=== PATIENT | female | born 1960 | race Caucasian/White ===

== ENCOUNTER 2017-09-16 19:07 | Emergency (ER) | payer OTHER ==
[~2017-09-16] VITALS: Ht 152.4 cm; Wt 65.3 kg
[~2017-09-16 19:07] MED LIST: AMITIZA24 MCG PO; AMLODIPINE BES2.5 MG PO; AMLODIPINE BESYL5 MG PO; AMOXICILLIN500 MG PO; ATIVAN1 MG PO; B-121000 MCG PO; BACTRIM DS 8001 TA1 PO; DIFLUCAN150 MG PO; FLEXERIL10 MG PO; KEFLEX500 MG PO; KENALOG0.1% TP; LOPRESSOR100 MG PO; METOPROLOL SR50 MG PO; MOTRIN800 MG PO; OMEPRAZOLE20 MG PO; OXYCODONE5 MG PO; PEPCID20 MG PO; PRAVACHOL20 MG PO; PREVACID30 M1 PO; Phenergan25 MG PO; ROBAXIN500 MG PO; SYNTHROID,LEV150 MCG PO; SYNTHROID,LEVO50 MCG PO; SYNTHROID,LEVO88 MCG PO; SYNTHROID0.025 MG; TOPROL XL25 MG PO; TRAMADOL HCL50 MG PO; TRIMOX500 MG PO; VIBRAMYCIN100 MG PO; VICODIN 5/500 505 MG PO; XANAX0.5 MG PO; ZITHROMAX Z PA250 MG PO
[2017-09-16 19:33] LABS: BASO % 0.1 % (0.0-1.0); EOS % 0.2 % (1.0-4.0); HEMATOCRIT 39.1 % (37.0-47.0); LYMPH # 2.5 10*3/uL (1.3-4.4); LYMPH % 18.8 % (27.0-41.0); MEAN CELL VOLUME 92.4 fl (81.0-99.0); MEAN CORPUSCULAR HGB 30.7 pg (27.0-31.0); MEAN CORPUSCULAR HGB CONC 33.2 g/dl (33.0-37.0); MEAN PLATELET VOLUME 8.9 fl (9.6-12.3); MONO # 0.8 10*3/uL (0.1-1.0); MONO % 5.6 % (3.0-9.0); NEUT # 9.9 10*3/uL (2.3-7.9); NEUT % 74.5 % (47.0-73.0); PLATELET COUNT AUTOMATED 270 10*3/uL (130-400); RED BLOOD COUNT 4.23 10*6/uL (4.10-5.10); RED CELL DISTRI WIDTH 13.7 % (0-14.5); WHITE BLOOD COUNT 13.4 10*3/uL (4.8-10.8)
[2017-09-16 19:44] LABS: INTERNATIONAL NORM RATIO 0.9 (2.0-3.5)
[2017-09-16 19:53] LABS: ALBUMIN 3.4 gm/dl (3.1-4.5); ALKALINE PHOSPHATASE 66 U/L (45-117); BUN 14 mg/dl (7-24); CHLORIDE 104 mmol/L (98-107); CREATININE 0.78 mg/dL (0.55-1.02); POTASSIUM 3.9 mmol/L (3.5-5.1); SGOT/AST 18 IU/L (3-35); SGPT/ALT 32 U/L (12-78); SODIUM 137 mmol/L (136-145); TOTAL PROTEIN 6.5 gm/dL (6.4-8.2)
[2017-09-16 19:59] LABS: TROPONIN I < 0.015 ng/ml (<0.045)
[2017-09-16 20:09] LABS: BILIRUBIN NEGATIVE (NEGATIVE); BLOOD NEGATIVE (NEGATIVE); CLARITY CLEAR (CLEAR); COLOR YELLOW (YELLOW); GLUCOSE NEGATIVE (NEGATIVE); KETONE NEGATIVE (NEGATIVE); LEUKO ESTERASE NEGATIVE (NEGATIVE); NITRITE NEGATIVE (NEGATIVE); SPECIFIC GRAVITY <= 1.005 (1.005-1.030); UROBILINOGEN 0.2 E.U./dl (0.2-1.0)
[2017-09-16 20:17] LABS: BACTERIA TRACE; WBC 0-2 wbc/hpf (0-5)
[2017-09-16 20:18] LABS: URINE AMPHETAMINES < 1000 (1000ng/ml); URINE BARBITURATES < 200 (200ng/ml); URINE BENZODIAZEPINES < 200 (200ng/ml); URINE CANNABINOIDS (THC) < 50 (50ng/ml); URINE COCAINE < 300 (300ng/ml); URINE METHADONE < 300 (300ng/ml); URINE OPIATES < 300 (300ng/ml); URINE PHENCYCLIDINE < 25 (25ng/ml)
[2017-09-16] MEDS ORDERED: AMOXICILLIN500 M2 PO (20:39)
[2017-09-16] MEDS ORDERED: Motrin,Rufen800 MG PO (20:39)
[2017-09-16] MEDS ORDERED: HYDROXYZINE HCL25 MG PO (20:39)
== END 2017-09-16 20:45 | disposition home or self-care (01) ==
LOC: ED 19:07
PROVIDERS: Physician Assistant
DX: F41.9 Anxiety disorder, unspecified (principal); K08.89 Other specified disorders of teeth and supporting structures; F17.200 Nicotine dependence, unspecified, uncomplicated; Z98.51 Tubal ligation status; Z79.899 Other long term (current) drug therapy

== ENCOUNTER 2017-09-22 20:37 | Emergency (ER) | payer OTHER ==
[~2017-09-22] VITALS: Ht 162.5 cm; Wt 68.0 kg
[~2017-09-22 20:37] MED LIST changes: +AMOXICILLIN500 M2 PO; +HYDROXYZINE HCL25 MG PO; +Motrin,Rufen800 MG PO
[2017-09-22] MEDS ORDERED: PREDNISONE20 M1 PO (21:32)
== END 2017-09-22 22:26 | disposition home or self-care (01) ==
LOC: ED 20:37
DX: F41.9 Anxiety disorder, unspecified (principal); M54.2 Cervicalgia; K08.89 Other specified disorders of teeth and supporting structures; M54.41 Lumbago with sciatica, right side; Z98.51 Tubal ligation status; Z79.899 Other long term (current) drug therapy

== ENCOUNTER → 2018-10-11 | Outpatient (CLI) | payer OTHER ==
[~2018-10-11] MED LIST changes: +PREDNISONE20 M1 PO
[2018-10-11 09:18] LABS: HEMATOCRIT 40.4 % (37.0-47.0); HEMOGLOBIN 12.8 g/dl (12.0-16.0); MEAN CELL VOLUME 94.6 fl (81.0-99.0); MEAN CORPUSCULAR HGB CONC 31.7 g/dl (33.0-37.0); MEAN PLATELET VOLUME 9.4 fl (9.6-12.3); RED BLOOD COUNT 4.27 10*6/uL (4.10-5.10); RED CELL DISTRI WIDTH 13.8 % (0-14.5); WHITE BLOOD COUNT 9.5 10*3/uL (4.8-10.8)
[2018-10-11 09:48] LABS: ALBUMIN 3.4 gm/dl (3.1-4.5); BUN 15 mg/dl (7-24); CHLORIDE 106 mmol/L (98-107); CHOLESTEROL 161 mg/dL (<200); CREATININE 1.01 mg/dL (0.55-1.02); POTASSIUM 3.9 mmol/L (3.5-5.1); SGOT/AST 16 IU/L (3-35); SGPT/ALT 17 U/L (12-78); SODIUM 139 mmol/L (136-145); TRIGLYCERIDES 79 mg/dl (<150); VLDL CHOLESTEROL 16 mg/dL (6-40)
[2018-10-11 09:56] LABS: ALKALINE PHOSPHATASE 76 U/L (45-117); FREE T4 0.79 ng/dl (0.76-1.46); HDL CHOLESTEROL 80 mg/dl (40-60); LDL CHOLESTEROL 65 mg/dL (9-159); TOTAL PROTEIN 6.7 gm/dL (6.4-8.2)
== END | disposition home or self-care (01) ==
LOC: LAB 08:36
PROVIDERS: Family Medicine
DX: E78.00 Pure hypercholesterolemia, unspecified (principal); E03.9 Hypothyroidism, unspecified; I10 Essential (primary) hypertension; E55.9 Vitamin D deficiency, unspecified; F41.1 Generalized anxiety disorder; E74.00 Glycogen storage disease, unspecified

== ENCOUNTER → 2019-01-11 | Outpatient (CLI) | payer OTHER ==
[2019-01-11 07:58] LABS: HEMATOCRIT 43.5 % (37.0-47.0); MEAN CORPUSCULAR HGB 29.6 pg (27.0-31.0); MEAN CORPUSCULAR HGB CONC 32.2 g/dl (33.0-37.0); MEAN PLATELET VOLUME 9.7 fl (9.6-12.3); RED BLOOD COUNT 4.73 10*6/uL (4.10-5.10); WHITE BLOOD COUNT 7.9 10*3/uL (4.8-10.8)
[2019-01-11 08:09] LABS: ALBUMIN 3.5 gm/dl (3.1-4.5); BUN 11 mg/dl (7-24); CHLORIDE 108 mmol/L (98-107); CHOLESTEROL 178 mg/dL (<200); CREATININE 0.76 mg/dL (0.55-1.02); HDL CHOLESTEROL 65 mg/dl (40-60); LDL CHOLESTEROL 97 mg/dL (9-159); POTASSIUM 4.7 mmol/L (3.5-5.1); SGOT/AST 19 IU/L (3-35); SGPT/ALT 49 U/L (12-78); SODIUM 142 mmol/L (136-145); TOTAL PROTEIN 7.1 gm/dL (6.4-8.2); TRIGLYCERIDES 82 mg/dl (<150); VLDL CHOLESTEROL 16 mg/dL (6-40)
[2019-01-11 08:15] LABS: ALKALINE PHOSPHATASE 98 U/L (45-117); FREE T4 1.14 ng/dl (0.76-1.46)
[2019-01-11 08:16] LABS: THYROID STIM HORMONE (HS) 0.043 uIU/ml (0.358-4.75)
== END | disposition home or self-care (01) ==
LOC: LAB 06:57
PROVIDERS: Family Medicine
DX: E55.9 Vitamin D deficiency, unspecified (principal); E03.9 Hypothyroidism, unspecified; E78.00 Pure hypercholesterolemia, unspecified; Z87.891 Personal history of nicotine dependence

== ENCOUNTER 2019-09-18 09:41 | Emergency (ER) | payer OTHER ==
[~2019-09-18] VITALS: Ht 152.4 cm; Wt 62.6 kg
[2019-09-18 10:27] LABS: BASO # 0.1 10*3/uL (0.0-0.1); BASO % 0.5 % (0.0-1.0); EOS # 0.2 10*3/uL (0.0-0.4); EOS % 1.6 % (1.0-4.0); HEMATOCRIT 44.5 % (37.0-47.0); LYMPH # 2.1 10*3/uL (1.3-4.4); LYMPH % 21.1 % (27.0-41.0); MEAN CELL VOLUME 92.1 fl (81.0-99.0); MEAN CORPUSCULAR HGB 30.6 pg (27.0-31.0); MEAN CORPUSCULAR HGB CONC 33.3 g/dl (33.0-37.0); MEAN PLATELET VOLUME 9.1 fl (9.6-12.3); MONO # 0.4 10*3/uL (0.1-1.0); MONO % 3.7 % (3.0-9.0); NEUT # 7.4 10*3/uL (2.3-7.9); NEUT % 72.8 % (47.0-73.0); PLATELET COUNT AUTOMATED 288 10*3/uL (130-400); RED BLOOD COUNT 4.83 10*6/uL (4.10-5.10); RED CELL DISTRI WIDTH 14.3 % (0-14.5); WHITE BLOOD COUNT 10.2 10*3/uL (4.8-10.8)
[2019-09-18 10:44] LABS: ALBUMIN 3.1 gm/dl (3.1-4.5); ALKALINE PHOSPHATASE 79 U/L (45-117); BUN 18 mg/dl (7-24); CHLORIDE 107 mmol/L (98-107); CREATININE 0.73 mg/dL (0.55-1.02); POTASSIUM 4.3 mmol/L (3.5-5.1); SGOT/AST 26 IU/L (3-35); SGPT/ALT 36 U/L (12-78); SODIUM 138 mmol/L (136-145); T3 UPTAKE 34 % (31-39); THYROXINE (T4) TOTAL 3.7 ug/dl (4.8-13.9); TOTAL PROTEIN 6.7 gm/dL (6.4-8.2)
[2019-09-18 10:49] LABS: TROPONIN I < 0.015 ng/ml (<0.045)
[2019-09-18 10:51] LABS: THYROID STIM HORMONE (HS) 0.141 uIU/ml (0.358-4.75)
[2019-09-18] MEDS ORDERED: LEVOTHYROXINE50 MCG PO (11:09)
== END 2019-09-18 11:30 | disposition home or self-care (01) ==
LOC: ED 09:41
PROVIDERS: Nurse Practitioner
DX: E03.9 Hypothyroidism, unspecified (principal); K21.9 Gastro-esophageal reflux disease without esophagitis; I10 Essential (primary) hypertension; F41.9 Anxiety disorder, unspecified; F17.200 Nicotine dependence, unspecified, uncomplicated; Z79.899 Other long term (current) drug therapy; Z79.2 Long term (current) use of antibiotics

== ENCOUNTER → 2020-10-08 | Outpatient (CLI) | payer OTHER ==
[~2020-10-08] MED LIST changes: +LEVOTHYROXINE50 MCG PO
== END | disposition home or self-care (01) ==
LOC: MAMMO 11:00
PROVIDERS: ATTEND Family Medicine
DX: Z12.31 Encounter for screening mammogram for malignant neoplasm of breast (principal)

== ENCOUNTER 2021-01-02 15:32 | Emergency (ER) | payer OTHER ==
[~2021-01-02] VITALS: Wt 62.6 kg
== END 2021-01-02 18:54 | disposition home or self-care (01) ==
LOC: ED 15:32
DX: S61.210A Laceration without foreign body of right index finger without damage to nail, initial encounter (principal); M54.5 Low back pain; I10 Essential (primary) hypertension; E78.5 Hyperlipidemia, unspecified; X50.0XXA Overexertion from strenuous movement or load, initial encounter; Y93.89 Activity, other specified; Y92.89 Other specified places as the place of occurrence of the external cause; Y99.8 Other external cause status

== ENCOUNTER → 2021-02-05 | Outpatient (CLI) | payer OTHER | END | disposition home or self-care (01) | LOC: COVID19 15:07 | PROVIDERS: ATTEND Internal Medicine | DX: Z11.52 Encounter for screening for COVID-19 (principal) ==

== ENCOUNTER 2021-03-18 16:36 | Emergency (ER) | payer OTHER ==
[~2021-03-18] VITALS: Wt 68.0 kg
[2021-03-18] MEDS ORDERED: Synthroid,Levo25 MCG PO (16:40)
[2021-03-18] MEDS ORDERED: FLUOXETINE HCL40 MG PO (16:40)
[2021-03-18] MEDS ORDERED: DEXILANT30 MG PO (16:40)
[2021-03-18] MEDS ORDERED: METOPROLOL SUCC25 M2 PO (16:41)
[2021-03-18] MEDS ORDERED: CYCLOBENZAPRINE10 MG PO (16:41)
[2021-03-18] MEDS ORDERED: LINZESS290 MC1 PO (16:41)
[2021-03-18] MEDS ORDERED: PRAVASTATIN SOD20 MG PO (16:41)
== END 2021-03-18 23:00 | disposition left against medical advice (07) ==
LOC: ED 16:36
DX: R51.9 Headache, unspecified (principal); I10 Essential (primary) hypertension; Z53.21 Procedure and treatment not carried out due to patient leaving prior to being seen by health care provider

== ENCOUNTER 2021-03-31 18:46 | Emergency (ER) | payer OTHER ==
[~2021-03-31 18:46] MED LIST changes: +CYCLOBENZAPRINE10 MG PO; +DEXILANT30 MG PO; +FLUOXETINE HCL40 MG PO; +LINZESS290 MC1 PO; +METOPROLOL SUCC25 M2 PO; +PRAVASTATIN SOD20 MG PO; +Synthroid,Levo25 MCG PO
[2021-03-31 19:11] LABS: BASO # 0.1 10*3/uL (0.0-0.1); BASO % 0.4 % (0.0-1.0); EOS # 0.1 10*3/uL (0.0-0.4); EOS % 0.7 % (1.0-4.0); HEMATOCRIT 44.4 % (37.0-47.0); LYMPH # 3.9 10*3/uL (1.3-4.4); LYMPH % 28.4 % (27.0-41.0); MEAN CELL VOLUME 89.3 fl (81.0-99.0); MEAN CORPUSCULAR HGB CONC 34.7 g/dl (33.0-37.0); MEAN PLATELET VOLUME 9.3 fl (9.6-12.3); MONO # 0.8 10*3/uL (0.1-1.0); MONO % 5.6 % (3.0-9.0); NEUT # 8.8 10*3/uL (2.3-7.9); NEUT % 64.4 % (47.0-73.0); PLATELET COUNT AUTOMATED 375 10*3/uL (130-400); RED BLOOD COUNT 4.97 10*6/uL (4.10-5.10); RED CELL DISTRI WIDTH 13.8 % (0-14.5); WHITE BLOOD COUNT 13.7 10*3/uL (4.8-10.8)
[2021-03-31 19:22] LABS: ACT PARTIAL THROMBO TIME 23.2 SECONDS (20.0-32.1); INTERNATIONAL NORM RATIO 0.9 (2.0-3.5)
[2021-03-31 19:27] LABS: ALBUMIN 3.9 gm/dl (3.1-4.5); ALKALINE PHOSPHATASE 95 U/L (45-117); BUN 19 mg/dl (7-24); CHLORIDE 98 mmol/L (98-107); CREATININE 1.61 mg/dL (0.55-1.02); SGOT/AST 37 IU/L (3-35); SGPT/ALT 46 U/L (12-78); SODIUM 130 mmol/L (136-145); TOTAL PROTEIN 8.1 gm/dL (6.4-8.2)
[2021-03-31 19:31] LABS: TROPONIN I < 0.015 ng/ml (<0.045)
[2021-03-31 19:59] LABS: LIPASE 116 U/L (73-393)
[2021-03-31 20:18] LABS: ETHYL ALCOHOL < 3.0 mg/dl (<3)
== END 2021-03-31 22:37 | disposition home or self-care (01) ==
LOC: ED 18:46
PROVIDERS: Emergency Medicine; Internal Medicine
DX: R07.9 Chest pain, unspecified (principal); R00.2 Palpitations; E87.1 Hypo-osmolality and hyponatremia; R25.2 Cramp and spasm; N18.32 Chronic kidney disease, stage 3b; Z79.899 Other long term (current) drug therapy

== ENCOUNTER 2021-05-14 13:28 | Emergency (ER) | payer OTHER ==
[~2021-05-14] VITALS: Wt 61.7 kg
[2021-05-14 14:00] LABS: BASO # 0.1 10*3/uL (0.0-0.1); BASO % 0.7 % (0.0-1.0); EOS # 0.4 10*3/uL (0.0-0.4); EOS % 3.5 % (1.0-4.0); HEMATOCRIT 41.6 % (37.0-47.0); LYMPH % 28.6 % (27.0-41.0); MEAN CELL VOLUME 93.7 fl (81.0-99.0); MEAN CORPUSCULAR HGB 31.1 pg (27.0-31.0); MEAN CORPUSCULAR HGB CONC 33.2 g/dl (33.0-37.0); MEAN PLATELET VOLUME 9.1 fl (9.6-12.3); MONO # 0.7 10*3/uL (0.1-1.0); MONO % 6.8 % (3.0-9.0); NEUT # 6.4 10*3/uL (2.3-7.9); NEUT % 60.1 % (47.0-73.0); PLATELET COUNT AUTOMATED 463 10*3/uL (130-400); RED BLOOD COUNT 4.44 10*6/uL (4.10-5.10); RED CELL DISTRI WIDTH 12.8 % (0-14.5); WHITE BLOOD COUNT 10.6 10*3/uL (4.8-10.8)
[2021-05-14 14:14] LABS: INTERNATIONAL NORM RATIO 0.9 (2.0-3.5)
[2021-05-14 14:21] LABS: ALBUMIN 3.6 gm/dl (3.1-4.5); ALKALINE PHOSPHATASE 158 U/L (45-117); BUN 10 mg/dl (7-24); CHLORIDE 103 mmol/L (98-107); CREATININE 1.02 mg/dL (0.55-1.02); POTASSIUM 3.9 mmol/L (3.5-5.1); SGOT/AST 29 IU/L (3-35); SGPT/ALT 49 U/L (12-78); SODIUM 134 mmol/L (136-145)
== END 2021-05-14 18:01 | disposition home or self-care (01) ==
LOC: ED 13:28
PROVIDERS: Physician Assistant
DX: E86.0 Dehydration (principal); Z20.822 Contact with and (suspected) exposure to COVID-19; R10.12 Left upper quadrant pain; R42 Dizziness and giddiness; F17.200 Nicotine dependence, unspecified, uncomplicated; Z98.890 Other specified postprocedural states; Z79.899 Other long term (current) drug therapy; Z98.51 Tubal ligation status

== ENCOUNTER 2021-10-09 13:02 | Emergency (ER) | payer OTHER ==
[~2021-10-09] VITALS: Wt 62.6 kg
[2021-10-09 13:27] LABS: BASO # 0.1 10*3/uL (0.0-0.1); BASO % 0.6 % (0.0-1.0); EOS # 0.2 10*3/uL (0.0-0.4); EOS % 1.8 % (1.0-4.0); HEMATOCRIT 34.2 % (37.0-47.0); LYMPH # 3.3 10*3/uL (1.3-4.4); LYMPH % 34.8 % (27.0-41.0); MEAN CELL VOLUME 91.2 fl (81.0-99.0); MEAN CORPUSCULAR HGB 30.9 pg (27.0-31.0); MEAN CORPUSCULAR HGB CONC 33.9 g/dl (33.0-37.0); MEAN PLATELET VOLUME 8.9 fl (9.6-12.3); MONO # 0.6 10*3/uL (0.1-1.0); MONO % 6.5 % (3.0-9.0); NEUT # 5.3 10*3/uL (2.3-7.9); PLATELET COUNT AUTOMATED 326 10*3/uL (130-400); RED BLOOD COUNT 3.75 10*6/uL (4.10-5.10); RED CELL DISTRI WIDTH 13.5 % (0-14.5); WHITE BLOOD COUNT 9.4 10*3/uL (4.8-10.8)
[2021-10-09 13:39] LABS: ACT PARTIAL THROMBO TIME 25.7 SECONDS (20.0-32.1); INTERNATIONAL NORM RATIO 0.9 (2.0-3.5)
[2021-10-09 13:45] LABS: ALKALINE PHOSPHATASE 106 U/L (45-117); BUN 12 mg/dl (7-24); CHLORIDE 107 mmol/L (98-107); CREATININE 0.84 mg/dL (0.55-1.02); POTASSIUM 3.8 mmol/L (3.5-5.1); SGOT/AST 15 IU/L (3-35); SGPT/ALT 18 U/L (12-78); SODIUM 137 mmol/L (136-145); TOTAL PROTEIN 6.3 gm/dL (6.4-8.2)
== END 2021-10-09 15:13 | disposition left against medical advice (07) ==
LOC: ED 13:02
PROVIDERS: Emergency Medicine
DX: R53.83 Other fatigue (principal); R20.0 Anesthesia of skin

== ENCOUNTER → 2021-10-19 | Outpatient (CLI) | payer OTHER | END | disposition home or self-care (01) | LOC: MAMMO 15:30 | PROVIDERS: ATTEND Internal Medicine Nephrology | DX: Z12.31 Encounter for screening mammogram for malignant neoplasm of breast (principal); R06.02 Shortness of breath ==

== ENCOUNTER → 2021-11-09 | Outpatient (CLI) | payer OTHER ==
[~2021-11-09] MED LIST changes: +LEVOTHYROXINE50 MC1 PO; -PRAVASTATIN SOD20 MG PO; +PRAVASTATIN SOD40 MG PO
== END | disposition home or self-care (01) ==
LOC: CARD 11-02 01:10
PROVIDERS: ATTEND Internal Medicine Nephrology
DX: R06.02 Shortness of breath (principal)

== ENCOUNTER → 2021-12-01 | Outpatient (CLI) | payer OTHER | LOC: CARD 11-04 07:00 | PROVIDERS: ATTEND Internal Medicine Nephrology | DX: R06.02 Shortness of breath (principal) ==

== ENCOUNTER → 2021-12-14 | Outpatient (CLI) | payer OTHER | END | disposition home or self-care (01) | LOC: MAMMO 12-01 09:00 → US 12-01 09:30 → MAMMO 14:00 | PROVIDERS: ATTEND Internal Medicine Nephrology | DX: N63.20 Unspecified lump in the left breast, unspecified quadrant (principal); R92.8 Other abnormal and inconclusive findings on diagnostic imaging of breast; R92.2 Inconclusive mammogram; N64.9 Disorder of breast, unspecified ==

== ENCOUNTER → 2022-01-18 | Outpatient (CLI) | payer OTHER | END | disposition home or self-care (01) | LOC: LAB 13:28 | PROVIDERS: ATTEND Internal Medicine Nephrology | DX: E03.9 Hypothyroidism, unspecified (principal) ==

== ENCOUNTER 2022-02-10 21:29 | Emergency (ER) | payer OTHER | END 2022-02-10 22:25 | disposition left against medical advice (07) | LOC: ED 21:29 | DX: Z13.89 Encounter for screening for other disorder (principal); Z98.51 Tubal ligation status; Z98.890 Other specified postprocedural states; Z79.899 Other long term (current) drug therapy ==

== ENCOUNTER → 2022-02-25 | Outpatient (CLI) | payer OTHER | END | disposition home or self-care (01) | LOC: RAD 10:35 | PROVIDERS: ATTEND Internal Medicine Nephrology | DX: M50.30 Other cervical disc degeneration, unspecified cervical region (principal); M25.78 Osteophyte, vertebrae; M79.18 Myalgia, other site ==

== ENCOUNTER 2022-09-10 10:05 | Emergency (ER) | payer OTHER ==
[~2022-09-10] VITALS: Wt 52.2 kg
[2022-09-10] MEDS ORDERED: NALOXONE HCL4 M1 NAS (10:26)
[2022-09-10] MEDS ORDERED: BUPRENORPHINE-1 EAC1 SL (10:26)
[2022-09-10] MEDS ORDERED: VITAMIN D350 MCG PO (10:28)
[2022-09-10] MEDS ORDERED: VISTARIL25 MG PO (10:33)
== END 2022-09-10 10:45 | disposition home or self-care (01) ==
LOC: ED 10:05
DX: F41.9 Anxiety disorder, unspecified (principal); Z76.5 Malingerer [conscious simulation]; K21.9 Gastro-esophageal reflux disease without esophagitis; I10 Essential (primary) hypertension; E78.00 Pure hypercholesterolemia, unspecified; Z98.51 Tubal ligation status; Z98.890 Other specified postprocedural states

== ENCOUNTER → 2022-09-19 | Outpatient (CLI) | payer OTHER ==
[~2022-09-19] MED LIST changes: +BUPRENORPHINE-1 EAC1 SL; +NALOXONE HCL4 M1 NAS; +VISTARIL25 MG PO; +VITAMIN D350 MCG PO
== END ==
LOC: CT 09-13 10:00
PROVIDERS: ATTEND Specialist
DX: J34.2 Deviated nasal septum (principal); J32.0 Chronic maxillary sinusitis

== ENCOUNTER 2022-09-26 14:37 | Emergency (ER) | payer OTHER ==
[~2022-09-26] VITALS: Ht 152.4 cm; Wt 54.4 kg
[2022-09-26] MEDS ORDERED: VIBRAMYCIN100 MG PO (19:52)
[2022-09-26] MEDS ORDERED: PREDNISONE20 M1 PO (19:52)
== END 2022-09-26 18:33 | disposition home or self-care (01) ==
LOC: ED 14:37
DX: J44.1 Chronic obstructive pulmonary disease with (acute) exacerbation (principal); K21.9 Gastro-esophageal reflux disease without esophagitis; I10 Essential (primary) hypertension; F41.9 Anxiety disorder, unspecified; E78.00 Pure hypercholesterolemia, unspecified; Z98.51 Tubal ligation status; Z98.890 Other specified postprocedural states; Z20.822 Contact with and (suspected) exposure to COVID-19

== ENCOUNTER → 2022-10-20 | Outpatient (CLI) | payer OTHER ==
[~2022-10-20] MED LIST changes: +ONDANSETRON4 MG SL
== END | disposition home or self-care (01) ==
LOC: MRI 09-21 01:12
PROVIDERS: ATTEND Internal Medicine Nephrology
DX: M47.812 Spondylosis without myelopathy or radiculopathy, cervical region (principal); M50.30 Other cervical disc degeneration, unspecified cervical region; M25.78 Osteophyte, vertebrae

== ENCOUNTER 2022-10-21 16:05 | Emergency (ER) | payer OTHER ==
[~2022-10-21] VITALS: Ht 152.4 cm; Wt 49.9 kg
[~2022-10-21 16:05] MED LIST changes: -ONDANSETRON4 MG SL
[2022-10-21 16:33] LABS: BASO % 0.6 % (0.0-1.0); EOS # 0.1 10*3/uL (0.0-0.4); EOS % 1.5 % (1.0-4.0); HEMATOCRIT 39.7 % (37.0-47.0); LYMPH # 1.7 10*3/uL (1.3-4.4); LYMPH % 26.4 % (27.0-41.0); MEAN CELL VOLUME 89.6 fl (81.0-99.0); MEAN CORPUSCULAR HGB 30.2 pg (27.0-31.0); MEAN CORPUSCULAR HGB CONC 33.8 g/dl (33.0-37.0); MEAN PLATELET VOLUME 9.1 fl (9.6-12.3); MONO # 0.4 10*3/uL (0.1-1.0); MONO % 6.7 % (3.0-9.0); NEUT # 4.3 10*3/uL (2.3-7.9); NEUT % 64.6 % (47.0-73.0); PLATELET COUNT AUTOMATED 293 10*3/uL (130-400); RED BLOOD COUNT 4.43 10*6/uL (4.10-5.10); RED CELL DISTRI WIDTH 14.1 % (0-14.5); WHITE BLOOD COUNT 6.6 10*3/uL (4.8-10.8)
[2022-10-21 16:48] LABS: ACT PARTIAL THROMBO TIME 24.5 SECONDS (20.0-32.1)
[2022-10-21 16:59] LABS: ALKALINE PHOSPHATASE 71 U/L (46-116); BUN 8 mg/dl (9-23); CHLORIDE 109 mmol/L (98-107); LIPASE 47 U/L (12-53); POTASSIUM 3.2 mmol/L (3.4-5.1); SGPT/ALT 12 U/L (10-49); TOTAL PROTEIN 6.5 gm/dL (6.0-8.0)
[2022-10-21 17:22] LABS: BILIRUBIN Negative (Negative); BLOOD Negative (Negative); CLARITY Turbid (Clear); COLOR Yellow (Yellow); GLUCOSE Negative (Negative); KETONE 1+ (Negative); LEUKO ESTERASE Negative (Negative); NITRITE Negative (Negative); UROBILINOGEN 0.2 E.U./dl (0.0-1.0)
[2022-10-21 17:30] LABS: URINE AMPHETAMINES Negative (1000ng/ml); URINE BARBITURATES Negative (200ng/ml); URINE BENZODIAZEPINES Negative (200ng/ml); URINE CANNABINOIDS (THC) Negative (50ng/ml); URINE COCAINE Negative (300ng/ml); URINE METHADONE Negative (300ng/ml); URINE OPIATES Positive (300ng/ml); URINE PHENCYCLIDINE Negative (25ng/ml)
[2022-10-21 17:52] LABS: CALCIUM OXALATE CRYSTALS 2+; MUCOUS 2+; WBC 0-2 wbc/hpf (0-5)
[2022-10-21] MEDS ORDERED: TRAMADOL HCL50 MG PO (19:12)
[2022-10-21] MEDS ORDERED: ONDANSETRON4 MG SL (19:12)
== END 2022-10-21 19:25 | disposition home or self-care (01) ==
LOC: ED 16:05
PROVIDERS: Emergency Medicine
DX: R11.2 Nausea with vomiting, unspecified (principal); R10.9 Unspecified abdominal pain; E87.6 Hypokalemia; R19.7 Diarrhea, unspecified; K21.9 Gastro-esophageal reflux disease without esophagitis; I10 Essential (primary) hypertension; F41.9 Anxiety disorder, unspecified; E78.00 Pure hypercholesterolemia, unspecified; Z98.51 Tubal ligation status; Z98.890 Other specified postprocedural states; Z79.899 Other long term (current) drug therapy

== ENCOUNTER → 2022-11-03 | Outpatient (CLI) | payer OTHER ==
[~2022-11-03] MED LIST changes: +ONDANSETRON4 MG SL
[2022-11-03 11:40] LABS: FREE T4 0.78 ng/dl (0.89-1.76); THYROID STIM HORMONE (HS) 0.098 uIU/ml (0.550-4.780)
== END | disposition home or self-care (01) ==
LOC: LAB 10:33
PROVIDERS: ATTEND Internal Medicine Nephrology
DX: E03.9 Hypothyroidism, unspecified (principal); R92.8 Other abnormal and inconclusive findings on diagnostic imaging of breast; R73.9 Hyperglycemia, unspecified

== ENCOUNTER → 2023-03-13 | Outpatient (CLI) | payer OTHER ==
[~2023-03-13] MED LIST changes: +PERCOCET 5-3251 EACH PO
[2023-03-13 15:15] LABS: BUN 5 mg/dl (9-23); CHLORIDE 106 mmol/L (98-107); POTASSIUM 4.5 mmol/L (3.4-5.1)
== END | disposition home or self-care (01) ==
LOC: ORTHO 00:48
PROVIDERS: ATTEND Orthopaedic Surgery
DX: M85.842 Other specified disorders of bone density and structure, left hand (principal); M79.642 Pain in left hand; M79.89 Other specified soft tissue disorders

== ENCOUNTER → 2023-03-14 | Day surgery (SDC) | payer OTHER ==
[2023-03-14] VITALS (16 sets, daily range): BP systolic 118–156; BP diastolic 90–104
[~2023-03-14] VITALS: Ht 152.4 cm; Wt 49.9 kg
== END | disposition home or self-care (01) ==
LOC: SDC 03-13 14:45
PROVIDERS: ATTEND Orthopaedic Surgery
DX: S63.285A Dislocation of proximal interphalangeal joint of left ring finger, initial encounter (principal); I10 Essential (primary) hypertension; E78.5 Hyperlipidemia, unspecified; E03.9 Hypothyroidism, unspecified; K21.9 Gastro-esophageal reflux disease without esophagitis; M19.90 Unspecified osteoarthritis, unspecified site; F17.210 Nicotine dependence, cigarettes, uncomplicated; V87.8XXA Person injured in other specified noncollision transport accidents involving motor vehicle (traffic), initial encounter; Y93.89 Activity, other specified; Y92.89 Other specified places as the place of occurrence of the external cause; Y99.8 Other external cause status; F41.9 Anxiety disorder, unspecified

== ENCOUNTER → 2023-03-20 | Outpatient (CLI) | payer OTHER | END | disposition home or self-care (01) | LOC: ORTHO 01:40 | PROVIDERS: ATTEND Orthopaedic Surgery | DX: S63.285D Dislocation of proximal interphalangeal joint of left ring finger, subsequent encounter (principal); X58.XXXD Exposure to other specified factors, subsequent encounter ==

== ENCOUNTER → 2023-03-27 | Outpatient (CLI) | payer OTHER | END | disposition home or self-care (01) | LOC: ORTHO 00:16 | PROVIDERS: ATTEND Orthopaedic Surgery | DX: M19.042 Primary osteoarthritis, left hand (principal); M77.8 Other enthesopathies, not elsewhere classified; Z96.698 Presence of other orthopedic joint implants ==

== ENCOUNTER → 2023-04-03 | Outpatient (CLI) | payer OTHER | END | disposition home or self-care (01) | LOC: ORTHO 01:08 | PROVIDERS: ATTEND Orthopaedic Surgery | DX: S63.285D Dislocation of proximal interphalangeal joint of left ring finger, subsequent encounter (principal); X58.XXXD Exposure to other specified factors, subsequent encounter ==

== ENCOUNTER → 2023-04-10 | Outpatient (CLI) | payer OTHER | END | disposition home or self-care (01) | LOC: ORTHO 01:51 | PROVIDERS: ATTEND Orthopaedic Surgery | DX: S63.285D Dislocation of proximal interphalangeal joint of left ring finger, subsequent encounter (principal); M79.89 Other specified soft tissue disorders; X58.XXXD Exposure to other specified factors, subsequent encounter ==

== ENCOUNTER 2023-06-20 14:35 | Emergency (ER) | payer OTHER ==
[~2023-06-20] VITALS: Wt 54.0 kg
[2023-06-20] MEDS ORDERED: Ketorolac Tromethamine 30 MG/ML VIAL IV ONE (14:50)
[2023-06-20] MEDS ORDERED: hydrALAZINE hydrochloride 20 MG/ML VIAL IV ONE ×2 (15:10→17:20)
[2023-06-20] MEDS ORDERED: Ondansetron Hydrochloride 4 MG/2 ML VIAL IV ONE (15:15)
[2023-06-20 15:17] LABS: BASO % 0.5 % (0.0-1.0); EOS # 0.1 10*3/uL (0.0-0.4); EOS % 1.3 % (1.0-4.0); HEMATOCRIT 43.8 % (37.0-47.0); LYMPH # 1.8 10*3/uL (1.3-4.4); LYMPH % 20.7 % (27.0-41.0); MEAN CELL VOLUME 88.3 fl (81.0-99.0); MEAN CORPUSCULAR HGB 29.8 pg (27.0-31.0); MEAN CORPUSCULAR HGB CONC 33.8 g/dl (33.0-37.0); MONO # 0.5 10*3/uL (0.1-1.0); MONO % 5.6 % (3.0-9.0); NEUT # 6.1 10*3/uL (2.3-7.9); NEUT % 71.5 % (47.0-73.0); PLATELET COUNT AUTOMATED 386 10*3/uL (130-400); RED BLOOD COUNT 4.96 10*6/uL (4.10-5.10); RED CELL DISTRI WIDTH 12.9 % (0-14.5); WHITE BLOOD COUNT 8.5 10*3/uL (4.8-10.8)
[2023-06-20] MEDS ORDERED: METOPROLOL SUCC25 M2 PO (15:35)
[2023-06-20 15:40] LABS: ALKALINE PHOSPHATASE 80 U/L (46-116); BUN 7 mg/dl (9-23); CHLORIDE 98 mmol/L (98-107); LIPASE 37 U/L (12-53); POTASSIUM 3.8 mmol/L (3.4-5.1); SGPT/ALT 38 U/L (5-49); TOTAL PROTEIN 7.7 gm/dL (6.0-8.0)
[2023-06-20 15:41] LABS: BILIRUBIN Negative (Negative); BLOOD Trace-Lysed (Negative); CLARITY Clear (Clear); COLOR Yellow (Yellow); GLUCOSE Negative (Negative); KETONE 2+ (Negative); LEUKO ESTERASE Negative (Negative); NITRITE Negative (Negative); SPECIFIC GRAVITY 1.015 (1.001-1.030)
[2023-06-20 15:48] LABS: URINE AMPHETAMINES Negative (1000ng/ml); URINE BARBITURATES Negative (200ng/ml); URINE BENZODIAZEPINES Negative (200ng/ml); URINE CANNABINOIDS (THC) Positive (50ng/ml); URINE COCAINE Negative (300ng/ml); URINE METHADONE Negative (300ng/ml); URINE OPIATES Negative (300ng/ml); URINE PHENCYCLIDINE Negative (25ng/ml)
[2023-06-20 16:00] LABS: MUCOUS 1+
[2023-06-20] MEDS ORDERED: MORPHINE Sulfate 2 MG/ML SYR IV ONE ×2 (16:25→17:20)
== END 2023-06-20 19:04 | disposition left against medical advice (07) ==
LOC: ED 14:35
PROVIDERS: Physician Assistant Medical
DX: R10.9 Unspecified abdominal pain (principal); R05.9 Cough, unspecified; I10 Essential (primary) hypertension; E78.5 Hyperlipidemia, unspecified; E03.9 Hypothyroidism, unspecified; F32.A Depression, unspecified; F41.9 Anxiety disorder, unspecified; K21.9 Gastro-esophageal reflux disease without esophagitis; E78.00 Pure hypercholesterolemia, unspecified; F17.210 Nicotine dependence, cigarettes, uncomplicated; Z98.51 Tubal ligation status; Z98.890 Other specified postprocedural states; Z53.29 Procedure and treatment not carried out because of patient's decision for other reasons; Z79.899 Other long term (current) drug therapy

== ENCOUNTER → 2023-06-26 | Outpatient (CLI) | payer OTHER ==
[2023-06-26 10:32] LABS: FREE T4 1.1 ng/dl (0.89-1.76)
[2023-06-26 10:33] LABS: VITAMIN D, 25-HYDROXY 27.7 ng/mL (30-100)
== END | disposition home or self-care (01) ==
LOC: LAB 08:58
PROVIDERS: ATTEND Nurse Practitioner Psychiatric/Mental Health
DX: E55.9 Vitamin D deficiency, unspecified (principal); E53.8 Deficiency of other specified B group vitamins; E03.9 Hypothyroidism, unspecified

== ENCOUNTER 2023-07-12 14:27 | Emergency (ER) | payer OTHER ==
[2023-07-13] MEDS ORDERED: LEVO-T75 MCG PO (04:30)
[2023-07-13] MEDS ORDERED: PRAVASTATIN SOD20 MG PO (04:30)
[2023-07-13] MEDS ORDERED: CYCLOBENZAPRINE10 MG PO (04:32)
[2023-07-13] MEDS ORDERED: FLUOXETINE40 MG PO (04:33)
== END 2023-07-12 14:59 | disposition left against medical advice (07) ==
LOC: ED 14:27
DX: R03.0 Elevated blood-pressure reading, without diagnosis of hypertension (principal); Z53.21 Procedure and treatment not carried out due to patient leaving prior to being seen by health care provider

== ENCOUNTER 2023-07-12 18:11 | Emergency (ER) | payer OTHER ==
[~2023-07-12] VITALS: Ht 165.1 cm; Wt 54.4 kg
[2023-07-13] MEDS ORDERED: PRAVASTATIN SOD20 MG PO (04:30)
[2023-07-13] MEDS ORDERED: LEVO-T75 MCG PO (04:30)
[2023-07-13] MEDS ORDERED: CYCLOBENZAPRINE10 MG PO (04:32)
[2023-07-13] MEDS ORDERED: FLUOXETINE40 MG PO (04:33)
== END 2023-07-12 19:50 | disposition left against medical advice (07) ==
LOC: ED 18:11
DX: R03.0 Elevated blood-pressure reading, without diagnosis of hypertension (principal); J00 Acute nasopharyngitis [common cold]; Z53.21 Procedure and treatment not carried out due to patient leaving prior to being seen by health care provider

== ENCOUNTER 2023-07-13 04:15 | Emergency (ER) | payer OTHER ==
[~2023-07-13] VITALS: Ht 152.4 cm
[2023-07-13] MEDS ORDERED: PRAVASTATIN SOD20 MG PO (04:30)
[2023-07-13] MEDS ORDERED: LEVO-T75 MCG PO (04:30)
[2023-07-13] MEDS ORDERED: CYCLOBENZAPRINE10 MG PO (04:32)
[2023-07-13] MEDS ORDERED: FLUOXETINE40 MG PO (04:33)
[2023-07-13] MEDS ORDERED: ACETAMINOPHEN 325 MG TAB PO ONE (04:40)
[2023-07-13] MEDS ORDERED: IOHEXOL 300 MG/ML 100 ML VIAL IV ONE (04:45)
[2023-07-13 05:23] LABS: BUN 9 mg/dl (9-23); CHLORIDE 108 mmol/L (98-107); LIPASE 45 U/L (12-53); POTASSIUM 3.8 mmol/L (3.4-5.1)
[2023-07-13 05:53] LABS: BASO # 0.1 10*3/uL (0.0-0.1); BASO % 0.9 % (0.0-1.0); EOS # 0.3 10*3/uL (0.0-0.4); EOS % 2.9 % (1.0-4.0); HEMATOCRIT 44.6 % (37.0-47.0); LYMPH # 2.9 10*3/uL (1.3-4.4); LYMPH % 30.9 % (27.0-41.0); MEAN CELL VOLUME 90.7 fl (81.0-99.0); MEAN CORPUSCULAR HGB 29.9 pg (27.0-31.0); MEAN PLATELET VOLUME 9.3 fl (9.6-12.3); MONO # 0.6 10*3/uL (0.1-1.0); MONO % 6.2 % (3.0-9.0); NEUT # 5.5 10*3/uL (2.3-7.9); NEUT % 58.7 % (47.0-73.0); PLATELET COUNT AUTOMATED 439 10*3/uL (130-400); RED BLOOD COUNT 4.92 10*6/uL (4.10-5.10); RED CELL DISTRI WIDTH 13.4 % (0-14.5); WHITE BLOOD COUNT 9.3 10*3/uL (4.8-10.8)
[2023-07-15] MEDS ORDERED: SUBOXONE 8 MG-1 EACH SL (11:19)
== END 2023-07-13 06:16 | disposition home or self-care (01) ==
LOC: ED 04:15
PROVIDERS: Internal Medicine
DX: R10.9 Unspecified abdominal pain (principal); R11.10 Vomiting, unspecified; N18.32 Chronic kidney disease, stage 3b; Z79.899 Other long term (current) drug therapy; Z98.51 Tubal ligation status

== ENCOUNTER → 2023-07-27 | Outpatient (CLI) | payer OTHER ==
[~2023-07-27] MED LIST changes: +FLUOXETINE40 MG PO; +LEVO-T75 MCG PO; +PRAVASTATIN SOD20 MG PO; +SINCALIDE 1.1 MCG in SODIUM CHLORIDE 0.9% 50 ML IV ONE; +SINCALIDE 5 MCG VIAL IV SCH; +SUBOXONE 8 MG-1 EACH SL; +Technetium Tc 99M Mebrofenin 1 KIT KIT IV SCH
== END | disposition home or self-care (01) ==
LOC: NM 07-20 07:00
PROVIDERS: ATTEND Internal Medicine Nephrology
DX: K82.9 Disease of gallbladder, unspecified (principal); I10 Essential (primary) hypertension

== ENCOUNTER 2023-12-03 16:41 | Emergency (ER) | payer OTHER ==
[~2023-12-03] VITALS: Ht 160 cm; Wt 54.4 kg
[~2023-12-03 16:41] MED LIST changes: -SINCALIDE 1.1 MCG in SODIUM CHLORIDE 0.9% 50 ML IV ONE; -SINCALIDE 5 MCG VIAL IV SCH; -Technetium Tc 99M Mebrofenin 1 KIT KIT IV SCH
[2023-12-03] MEDS ORDERED: HYDROXYZINE PAM25 M1 PO (17:06)
[2023-12-03] MEDS ORDERED: hydrOXYzine pamoate 25 MG CAP PO ONE (17:10)
== END 2023-12-03 17:20 | disposition home or self-care (01) ==
LOC: ED 16:41
DX: F41.9 Anxiety disorder, unspecified (principal); I10 Essential (primary) hypertension; F32.A Depression, unspecified; J44.9 Chronic obstructive pulmonary disease, unspecified; K21.9 Gastro-esophageal reflux disease without esophagitis; F19.10 Other psychoactive substance abuse, uncomplicated; Z91.041 Radiographic dye allergy status; Z98.51 Tubal ligation status; Z98.890 Other specified postprocedural states

== ENCOUNTER → 2024-07-01 | Outpatient (CLI) | payer OTHER ==
[~2024-07-01] MED LIST changes: +HYDROXYZINE PAM25 M1 PO
== END | disposition home or self-care (01) ==
LOC: US 01:49
PROVIDERS: ATTEND Nurse Practitioner Family
DX: K76.9 Liver disease, unspecified (principal); R10.13 Epigastric pain; Z90.49 Acquired absence of other specified parts of digestive tract

== ENCOUNTER → 2024-08-08 | Outpatient (CLI) | payer OTHER ==
[~2024-08-08] MED LIST changes: +ASPIRIN81 M1 PO; +LIPITOR20 MG PO; +OMEPRAZOLE40 MG PO; +Ondansetron4 MG PO; +Synthroid,Levo88 MCG PO
== END ==
LOC: RESCLI
PROVIDERS: ATTEND Internal Medicine
DX: E03.9 Hypothyroidism, unspecified (principal); I10 Essential (primary) hypertension; E78.5 Hyperlipidemia, unspecified; K21.9 Gastro-esophageal reflux disease without esophagitis; K58.9 Irritable bowel syndrome, unspecified; F41.9 Anxiety disorder, unspecified; B36.9 Superficial mycosis, unspecified; M54.9 Dorsalgia, unspecified; J44.9 Chronic obstructive pulmonary disease, unspecified; F19.10 Other psychoactive substance abuse, uncomplicated; Z71.6 Tobacco abuse counseling; Z72.0 Tobacco use; Z79.899 Other long term (current) drug therapy; Z98.890 Other specified postprocedural states

== ENCOUNTER 2024-08-09 02:04 | Emergency (ER) | payer OTHER ==
[~2024-08-09] VITALS: Ht 152.4 cm; Wt 63.5 kg
[~2024-08-09 02:04] MED LIST changes: -Ondansetron4 MG PO
[2024-08-09] MEDS ORDERED: Ondansetron Hydrochloride 4 MG TAB SL ONE (02:25)
[2024-08-09 02:44] LABS: BASO # 0.1 10*3/uL (0.0-0.1); BASO % 0.5 % (0.0-1.0); EOS # 0.1 10*3/uL (0.0-0.4); EOS % 0.7 % (1.0-4.0); HEMATOCRIT 45.1 % (37.0-47.0); MEAN CELL VOLUME 86.7 fl (81.0-99.0); MEAN CORPUSCULAR HGB 29.8 pg (27.0-31.0); MEAN CORPUSCULAR HGB CONC 34.4 g/dl (33.0-37.0); MEAN PLATELET VOLUME 9.4 fl (9.6-12.3); MONO # 0.8 10*3/uL (0.1-1.0); MONO % 5.5 % (3.0-9.0); NEUT # 10.5 10*3/uL (2.3-7.9); NEUT % 70.5 % (47.0-73.0); PLATELET COUNT AUTOMATED 419 10*3/uL (130-400); RED CELL DISTRI WIDTH 13.1 % (0-14.5); WHITE BLOOD COUNT 14.9 10*3/uL (4.8-10.8)
[2024-08-09 03:06] LABS: ALKALINE PHOSPHATASE 118 U/L (46-116); BUN 16 mg/dl (9-23); CHLORIDE 103 mmol/L (98-107); LIPASE 45 U/L (12-53); POTASSIUM 3.4 mmol/L (3.4-5.1); SGPT/ALT 12 U/L (5-49); TOTAL PROTEIN 7.7 gm/dL (6.0-8.0)
[2024-08-09 03:36] LABS: BILIRUBIN Negative (Negative); BLOOD 1+ (Negative); CLARITY Turbid (Clear); COLOR Yellow (Yellow); GLUCOSE Negative (Negative); KETONE Trace (Negative); LEUKO ESTERASE 1+ (Negative); NITRITE Negative (Negative); PH 7.5 (4.5-8.0)
[2024-08-09 03:46] LABS: WBC 0-2 wbc/hpf (0-5)
[2024-08-09 03:52] LABS: URINE AMPHETAMINES Negative (1000ng/ml); URINE BARBITURATES Negative (200ng/ml); URINE BENZODIAZEPINES Negative (200ng/ml); URINE CANNABINOIDS (THC) Negative (50ng/ml); URINE COCAINE Negative (300ng/ml); URINE METHADONE Negative (300ng/ml); URINE OPIATES Positive (300ng/ml); URINE PHENCYCLIDINE Negative (25ng/ml)
[2024-08-09] MEDS ORDERED: LORazepam 1 MG TAB PO ONE (04:00)
[2024-08-09] MEDS ORDERED: Ketorolac Tromethamine 30 MG/ML VIAL IM ONE (04:10)
[2024-08-09] MEDS ORDERED: Ondansetron4 MG PO (04:16)
== END 2024-08-09 04:24 | disposition home or self-care (01) ==
LOC: ED 02:04
PROVIDERS: Internal Medicine
DX: R11.2 Nausea with vomiting, unspecified (principal); N17.9 Acute kidney failure, unspecified; F41.9 Anxiety disorder, unspecified; E87.1 Hypo-osmolality and hyponatremia; D72.829 Elevated white blood cell count, unspecified; R10.9 Unspecified abdominal pain; Z91.041 Radiographic dye allergy status; Z79.82 Long term (current) use of aspirin; Z79.899 Other long term (current) drug therapy; Z98.84 Bariatric surgery status; Z90.49 Acquired absence of other specified parts of digestive tract; Z87.891 Personal history of nicotine dependence

== ENCOUNTER → 2024-08-15 | Outpatient (CLI) | payer OTHER ==
[~2024-08-15] MED LIST changes: +Ondansetron4 MG PO
== END | disposition home or self-care (01) ==
LOC: LAB 09:12
PROVIDERS: ATTEND Student in an Organized Health Care Education/Training Program
DX: J06.9 Acute upper respiratory infection, unspecified (principal); Z20.822 Contact with and (suspected) exposure to COVID-19

== ENCOUNTER → 2024-08-27 | Outpatient (CLI) | payer OTHER ==
[2024-08-28 12:07] LABS: ANTI-DSDNA ANTIBODIES <1 IU/mL (0-9); ANTI-RNP ANTIBODIES <0.2 AI (0.0-0.9); ANTICHROMATIN ANTIBODIES <0.2 AI (0.0-0.9); ANTISCLERODERMA-70 AB <0.2 AI (0.0-0.9)
== END | disposition home or self-care (01) ==
LOC: LAB 08:30
PROVIDERS: Student in an Organized Health Care Education/Training Program; ATTEND Internal Medicine Endocrinology, Diabetes & Metabolism
DX: G47.00 Insomnia, unspecified (principal)

== ENCOUNTER → 2024-09-02 | Outpatient (CLI) | payer OTHER | END | disposition home or self-care (01) | LOC: RESCLI 01:40 | PROVIDERS: ATTEND Internal Medicine | DX: E03.9 Hypothyroidism, unspecified (principal); F41.9 Anxiety disorder, unspecified; K58.9 Irritable bowel syndrome, unspecified; I10 Essential (primary) hypertension; R13.10 Dysphagia, unspecified; J44.9 Chronic obstructive pulmonary disease, unspecified; E78.5 Hyperlipidemia, unspecified; M54.9 Dorsalgia, unspecified; Z71.6 Tobacco abuse counseling; Z72.0 Tobacco use ==

== ENCOUNTER 2024-09-07 02:06 | Emergency (ER) | payer OTHER ==
[2024-09-07 02:29] LABS: BILIRUBIN Negative (Negative); BLOOD Negative (Negative); CLARITY Clear (Clear); COLOR Yellow (Yellow); GLUCOSE Negative (Negative); KETONE Negative (Negative); LEUKO ESTERASE Negative (Negative); NITRITE Negative (Negative); PH 6.5 (4.5-8.0); SPECIFIC GRAVITY <= 1.005 (1.001-1.030); UROBILINOGEN 0.2 E.U./dl (0.0-1.0)
[2024-09-07 02:37] LABS: URINE AMPHETAMINES Negative (1000ng/ml); URINE BARBITURATES Negative (200ng/ml); URINE BENZODIAZEPINES Negative (200ng/ml); URINE CANNABINOIDS (THC) Negative (50ng/ml); URINE COCAINE Negative (300ng/ml); URINE METHADONE Negative (300ng/ml); URINE OPIATES Negative (300ng/ml); URINE PHENCYCLIDINE Negative (25ng/ml)
[2024-09-07 03:03] LABS: WBC 0-2 wbc/hpf (0-5)
== END 2024-09-07 02:32 | disposition left against medical advice (07) ==
LOC: ED 02:06
PROVIDERS: Internal Medicine
DX: M25.571 Pain in right ankle and joints of right foot (principal); R45.1 Restlessness and agitation; F17.210 Nicotine dependence, cigarettes, uncomplicated; Z53.29 Procedure and treatment not carried out because of patient's decision for other reasons; Z91.041 Radiographic dye allergy status; Z79.82 Long term (current) use of aspirin; Z79.899 Other long term (current) drug therapy; Z98.84 Bariatric surgery status; Z90.49 Acquired absence of other specified parts of digestive tract

== ENCOUNTER → 2024-10-02 | Outpatient (CLI) | payer OTHER ==
[2024-10-02 11:19] LABS: ALKALINE PHOSPHATASE 111 U/L (46-116); BUN 10 mg/dl (9-23); CHLORIDE 104 mmol/L (98-107); FREE T4 1.54 ng/dl (0.89-1.76); POTASSIUM 4.7 mmol/L (3.4-5.1); SGPT/ALT 23 U/L (5-49)
== END | disposition home or self-care (01) ==
LOC: LAB 10:13
PROVIDERS: ATTEND Student in an Organized Health Care Education/Training Program
DX: I10 Essential (primary) hypertension (principal)

== ENCOUNTER → 2024-11-18 | Outpatient (CLI) | payer OTHER | END | disposition home or self-care (01) | LOC: RESCLI 08:20 → LAB 08:20 | PROVIDERS: ATTEND Internal Medicine | DX: E83.52 Hypercalcemia (principal); E03.9 Hypothyroidism, unspecified ==

== ENCOUNTER → 2024-12-17 | Outpatient (CLI) | payer OTHER | END | disposition home or self-care (01) | LOC: RESCLI 01:16 | PROVIDERS: ATTEND Internal Medicine | DX: Z00.00 Encounter for general adult medical examination without abnormal findings (principal); M54.9 Dorsalgia, unspecified; F41.9 Anxiety disorder, unspecified; I10 Essential (primary) hypertension; J44.9 Chronic obstructive pulmonary disease, unspecified; E78.5 Hyperlipidemia, unspecified; B36.9 Superficial mycosis, unspecified; E03.9 Hypothyroidism, unspecified; K21.9 Gastro-esophageal reflux disease without esophagitis; Z71.6 Tobacco abuse counseling ==

== ENCOUNTER → 2025-04-21 | Outpatient (CLI) | payer OTHER ==
[2025-04-21 12:38] LABS: BILIRUBIN Negative (Negative); BLOOD Negative (Negative); CLARITY Clear (Clear); COLOR Yellow (Yellow); KETONE Negative (Negative); LEUKO ESTERASE Trace (Negative); NITRITE Negative (Negative); PH 6.0 (4.5-8.0); SPECIFIC GRAVITY <= 1.005 (1.001-1.030); UROBILINOGEN 0.2 E.U./dl (0.0-1.0)
[2025-04-21 13:05] LABS: BUN 9 mg/dl (9-23)
[2025-04-21 13:11] LABS: BACTERIA 1+; RBC 0-2 rbc/hpf (0-2)
== END | disposition home or self-care (01) ==
LOC: RESCLI 01:38 → LAB 01:38
PROVIDERS: ATTEND Internal Medicine
DX: J44.9 Chronic obstructive pulmonary disease, unspecified (principal); B36.9 Superficial mycosis, unspecified; M54.9 Dorsalgia, unspecified; E03.9 Hypothyroidism, unspecified; I10 Essential (primary) hypertension; K21.9 Gastro-esophageal reflux disease without esophagitis; E78.5 Hyperlipidemia, unspecified; R10.9 Unspecified abdominal pain; F41.9 Anxiety disorder, unspecified; Z79.899 Other long term (current) drug therapy